=== PATIENT | female | born 1955 ===

== ENCOUNTER 2017-04-21 09:43 | Emergency (ER) | payer OTHER ==
[2017-04-21 09:43] VITALS: BMI 28.1
[2017-04-21 10:17] LABS: RBC URINE 1 /hpf (0-3); URINE BILIRUBIN NEGATIVE (NEGATIVE); URINE BLOOD NEGATIVE (NEGATIVE); URINE COLOR Yellow (YELLOW); URINE GLUCOSE (UA) 1+ mg/dL (Normal); URINE KETONE NEGATIVE (NEGATIVE); URINE LEUKOCYTE ESTERASE TRACE Leu/uL (Negative); URINE PROTEIN NEGATIVE (NEGATIVE); URINE UROBILINOGEN NORMAL mg/dL (0.2-1.0); WBC URINE 9 /hpf (0-5)
[2017-04-21] MEDS ORDERED: Sodium Chloride 0.9% 1,000 ML IV ONE (10:27)
[2017-04-21 10:37] LABS: BASO % 0.5 % (0.0-2.0); EOS # 0.1 K/uL (0.0-0.7); EOS % 2.2 % (0.0-4.0); LYMPH # 1.4 K/uL (1.0-4.3); LYMPH % 35.6 % (20.0-40.0); MEAN CELL VOLUME 87.4 fL (81.0-99.0); MEAN CORPUSCULAR HEMOGLOBIN 29.2 pg (27.0-31.0); MEAN CORPUSCULAR HGB CONC 33.4 g/dL (33.0-37.0); MEAN PLATELET VOLUME 8.2 fL (7.2-11.7); MONO # 0.3 K/uL (0.0-0.8); MONO % 6.6 % (0.0-10.0); WHITE BLOOD COUNT 3.9 K/uL (4.8-10.8)
[2017-04-21] MEDS ORDERED: Sodium Chloride 0.9% 1,000 ML ONE (10:38)
[2017-04-21 11:04] LABS: ALB/GLOB RATIO 1.3 (1.0-2.1); ALKALINE PHOSPHATASE 88 U/L (38-126); ALT/SGPT 28 U/L (9-52); AST/SGOT 25 U/L (14-36); BILIRUBIN,TOTAL 0.6 mg/dL (0.2-1.3); BLOOD UREA NITROGEN 13 mg/dL (7-17); CALCIUM 8.5 mg/dl (8.6-10.4); CARBON DIOXIDE 29 mmol/L (22-30); CHLORIDE 100 mmol/L (98-107); GFR AFRICAN-AMERICAN > 60; GLUCOSE,RANDOM 217 mg/dL (65-105); POTASSIUM 3.8 mmol/L (3.6-5.2); SODIUM 137 mmol/L (132-148); TOTAL PROTEIN 7.6 g/dL (6.3-8.3)
--- NOTE | 2017-04-21 11:15 | RAD ---
PROCEDURE: Radiographs of the chest and abdomen (obstructive series) HISTORY: ABD PAIN, CONSTIPATION COMPARISON: No prior. TECHNIQUE: AP radiograph of the chest, with upright and supine radiographs of the abdomen. FINDINGS: CHEST: Lungs: Clear. Cardiovascular: Normal size heart. No pulmonary vascular congestion. Pleura: No pleural fluid. No pneumothorax. Other findings: None. ABDOMEN AND PELVIS: Bowel: There is a nonobstructive bowel gas pattern appreciated retained fecal material scattered throughout various large-bowel segments. Surgical clips in the right upper quadrant abdomen. Free air: None. Bones: Unremarkable. Other findings: No suspicious intra-abdominal calcifications are identified. IMPRESSION: Unremarkable radiographs of chest and abdomen. Postop changes seen the right upper quadrant abdomen. A nonobstructive bowel gas pattern is identified. .
[2017-04-21 11:20] VITALS: O2SAT 99
--- NOTE | 2017-04-21 11:54 | C.PDOC ---
History Of Present Illness 62-year-old female presents to the emergency department with complaints of epigastric and right upper quadrant pain for the past three days. She states she tried to see GI Dr. Nice for her symptoms, but was told she needed a referral to be seen. Patient denies nausea/vomiting, diarrhea, fevers/chills, dysuria/hematuria. Of note, patient had a cholecystectomy approx fifteen years ago. Time Seen by Provider: 04/21/17 09:59 Chief Complaint (Nursing): Abdominal Pain History Per: Patient History/Exam Limitations: no limitations Onset/Duration Of Symptoms: Days Current Symptoms Are (Timing): Still Present Severity: Mild Location Of Pain/Discomfort: RUQ, Epigastric Radiation Of Pain To:: None Quality Of Discomfort: "Pain" Associated Symptoms: denies: Fever, Chills, Nausea, Vomiting, Diarrhea, Urinary Symptoms Past Medical History Reviewed: Historical Data, Nursing Documentation, Vital Signs Vital Signs: Last Vital Signs Temp 97.9 F 04/21/17 12:35 Pulse 60 04/21/17 12:35 Resp 16 04/21/17 12:35 BP 132/70 04/21/17 12:35 Pulse Ox 99 04/21/17 12:51 - Medical History PMH: Anxiety, Depression, Diabetes, HTN, Hypercholesterolemia, Hypothyroidism Surgical History: Cholecystectomy, - [facility] INDIVID PSYCHOTHERAP NEC (06/28/13) INJECT/INFUSE NEC (08/14/14) OTHER GROUP THERAPY (06/28/13) RETROGRADE PYELOGRAM (11/08/13) URETERAL CATHETERIZATION (11/08/13) Family History: States: No Known Family Hx - Social History Hx Alcohol Use: No Hx Substance Use: No - Immunization History Hx Tetanus Toxoid Vaccination: No Hx Influenza Vaccination: No Hx Pneumococcal Vaccination: No Review Of Systems Except As Marked, All Systems Reviewed And Found Negative. Constitutional: Negative for: Fever, Chills Cardiovascular: Negative for: Chest Pain, Palpitations Respiratory: Negative for: Shortness of Breath Gastrointestinal: Positive for: Abdominal Pain. Negative for: Nausea, Vomiting , Diarrhea Genitourinary: Negative for: Dysuria, Hematuria Neurological: Negative for: Weakness, Numbness, Headache, Dizziness Physical Exam - Physical Exam Appears: Well, Non-toxic, No Acute Distress Skin: Warm, Dry, No Rash Head: Normacephalic Eye(s): bilateral: Normal Inspection Oral Mucosa: Moist Neck: Normal, Normal ROM Cardiovascular: Rhythm Regular Respiratory: Normal Breath Sounds, No Rales, No Rhonchi, No Wheezing Gastrointestinal/Abdominal: Bowel Sounds, Soft, Tenderness (RUQ and epigastric mild TTP, (-) Edwards's), No Guarding, No Rebound Back: No CVA Tenderness Extremity: Normal ROM Neurological/Psych: Oriented x3 ED Course And Treatment - Laboratory Results Result Diagrams: 04/21/17 10:31 04/21/17 10:31 O2 Sat by Pulse Oximetry: 99 (on RA) Pulse Ox Interpretation: Normal Progress Note: Bloodwork and UA ordered and reviewed. Patient given IV NS bolus , IV protonic, IV toradol. Reevaluation Time: 12:30 Reassessment Condition: Improved (Patient reassessed, is resting comfortably and states her pain has resolved. On exam, abdomen is soft and nontende. Blood work unremarkable. Patient given Rx for protonix and was instructed to follow up with Dr. Nice within 1 week. Patient already scheduled for colonoscopy/endoscopy on May 05. She understands she should return to ED if her symptoms worsen.) Disposition Counseled Patient/Family Regarding: Studies Performed, Diagnosis, Need For Followup, Rx Given - Disposition Referrals: Chetan Nice MD [Staff Provider] - Disposition: HOME/ ROUTINE Disposition Time: 12:30 Condition: STABLE Additional Instructions: FOLLOW UP WITH DR NICE SCHEDULED FOR COLONOSCOPY/ENDOSCOPY USE MEDICATION DAILY AVOID SPICY OR ACIDIC FOODS REYTURN TO EMERGENCY ROOM IF SYMPTOMS WORSEN SEGUIMIENTO CON DR NICE SEGN CHENG CALENDARIO PARA COLONOSCOPIA / ENDOSCOPIA USE MEDICAMENTOS DIARIAMENTE EVITE ALIMENTOS PICANTES O CIDOS REGRESE AL FERNIE DE EMERGENCIA SI LOS SNTOMAS EMPEORAN Prescriptions: Pantoprazole [Protonix EC Tab] 20 mg PO DAILY #30 ect Instructions: Epigastric Pain (ED) Forms: [facility] (Spanish) Print Language: JAPANESE - POA Present On Arrival: None - Clinical Impression Clinical Impression: Abdominal pain, Epigastric abdominal pain, Dyspepsia - Scribe Statement The provider has reviewed the documentation as recorded by the Scribe (Miranda Williamson) All medical record entries made by the Scribe were at my direction and personally dictated by me. I have reviewed the chart and agree that the record accurately reflects my personal performance of the history, physical exam, medical decision making, and the department course for this patient. I have also personally directed, reviewed, and agree with the discharge instructions and disposition.
[2017-04-21 12:35] VITALS: BP 132/70; PULSE 60; RESP 16; TEMP 97.9
== END 2017-04-21 12:57 | disposition home or self-care (01) ==
LOC: C.ER 09:43
DX: R10.13 Epigastric pain (principal); E11.9 Type 2 diabetes mellitus without complications; E78.00 Pure hypercholesterolemia, unspecified; I10 Essential (primary) hypertension; E03.9 Hypothyroidism, unspecified
CPT/HCPCS: 74022; 80053; 81001; 83690; 85025; 96361; 96374; 96375; 99285; C9113; J1885; J7040

== ENCOUNTER 2017-05-14 06:21 | Day surgery (SDC) | payer OTHER ==
[2017-05-14 06:50] VITALS: O2SAT 100
[2017-05-14] MEDS ORDERED: Propofol 10 mg/ml Inj (20 ML) ONE (07:43)
[2017-05-14] MEDS ORDERED: Lidocaine Hydrochloride 5 ML INJ ONE (07:45)
[2017-05-14] MEDS ORDERED: Lactated Ringer's 1,000 ML IV ONE ×4 (07:51→08:54)
[2017-05-14] MEDS ORDERED: Simethicone 40 mg/0.6 ml Liquid (30 ml) ONE (08:26)
[2017-05-14] MEDS ORDERED: ePHEDrine 50 mg/ml Inj ONE (08:42)
[2017-05-14 09:15] VITALS: TEMP 98.6
[2017-05-14 10:52] VITALS: BP 123/64; PULSE 53; RESP 14
== END 2017-05-14 10:20 | disposition home or self-care (01) ==
LOC: C.ENDO 06:21
PROVIDERS: ATTEND Internal Medicine
DX: R10.9 Unspecified abdominal pain (principal); K59.09 Other constipation; I10 Essential (primary) hypertension; E11.9 Type 2 diabetes mellitus without complications; K20.9 Esophagitis, unspecified; K29.60 Other gastritis without bleeding; K44.9 Diaphragmatic hernia without obstruction or gangrene; K57.30 Diverticulosis of large intestine without perforation or abscess without bleeding; K64.8 Other hemorrhoids; D12.3 Benign neoplasm of transverse colon
CPT/HCPCS: 43239; 45380; 45385; 82948; 88305; J2704; J7120